=== PATIENT | female | born 2000 | race Caucasian/White ===

== ENCOUNTER 2021-07-20 20:07 | Emergency (ER) | payer OTHER ==
[~2021-07-20] VITALS: Ht 165.1 cm; Wt 90.7 kg
[2021-07-20 20:22] VITALS: BP 140/84
--- NOTE | 2021-07-20 20:27 | NUR ---
PT TAKEN TO BED 8
--- NOTE | 2021-07-20 20:38 | NUR ---
AMBULATED TO RESTROOM AT THIS TIME
--- NOTE | 2021-07-20 20:45 | NUR ---
X-Ray at bedside.
--- NOTE | 2021-07-20 20:51 | NUR ---
20G IV ESTABLISHED IN R AC AND BLOODWORK COLLECTED. BLOOD WALKED TO LAB
[2021-07-20 21:21] LABS: BASOPHILS # (AUTO) 0.1 K/uL (0.00-0.22); BASOPHILS % (AUTO) 0.4 % (0.0-2.0); EOSINOPHILS # (AUTO) 0.2 K/uL (0-0.4); EOSINOPHILS % (AUTO) 1.5 % (0.0-4.0); HEMATOCRIT 41.4 % (36-48); LYMPHOCYTES # (AUTO) 5.5 K/uL (2.5-16.5); LYMPHOCYTES % (AUTO) 36.3 % (20.5-51.1); MEAN CORPUSCULAR HEMOGLOBIN 30 pg (27-31); MEAN CORPUSCULAR HGB CONC 34 g/dL (33-37); MEAN CORPUSCULAR VOLUME 89.2 fL (80-94); MONOCYTES # (AUTO) 0.9 K/uL (0.8-1.0); MONOCYTES % (AUTO) 5.8 % (1.7-9.3); NEUTROPHILS # (AUTO) 8.5 K/uL (1.8-7.7); PLATELET COUNT (AUTO) 367 K/uL (140-450); RED BLOOD CELL COUNT(AUTO) 4.64 MIL/uL (4.20-5.40); WHITE BLOOD COUNT (AUTO) 15.2 K/uL (4.8-10.8)
[2021-07-20 22:16] LABS: ALBUMIN 4.4 g/dL (3.4-5.0); ANION GAP 12.1 (8-16); CARBON DIOXIDE 25.8 mmol/L (21-32); CREATININE 0.5 mg/dL (0.6-1.3); POTASSIUM 3.9 mmol/L (3.5-5.1); TOTAL BILIRUBIN 0.4 mg/dL (0.0-1.0)
--- NOTE | 2021-07-20 23:15 | NUR ---
PREET PLUMMER EXAMINING PATIENT
[2021-07-20] MEDS ORDERED: FAMOTIDINE 20 MG/2 ML VIAL IVP ONE (23:20)
[2021-07-20] MEDS ORDERED: OMEP40EC23 PO (23:21)
[2021-07-20] MEDS ORDERED: ONDA-188 PO (23:21)
--- NOTE | 2021-07-20 23:51 | NUR ---
PATIENT CLEARED FOR DISCHARGE AT [facility]. ADVISED TO FOLLOW UP WITH PCP AND RETURN IF CONDITION WORSENS. NO OTHER COMPLAINTS OR CONCERNS [facility] RX SENT HOME WITH PATIENT.
[2021-07-20 23:52] VITALS: BP 129/64
== END 2021-07-20 23:51 | disposition home or self-care (01) ==
LOC: MED 20:07
DX: R07.89 Other chest pain (principal); R03.0 Elevated blood-pressure reading, without diagnosis of hypertension; Z79.899 Other long term (current) drug therapy
CPT/HCPCS: 36415; 71045; 80053; 81025; 84484; 85025; 85379; 93005; 96374; 99285; J3490; Q0092